=== PATIENT | male | born 1940 | race Caucasian/White ===

== ENCOUNTER 2016-12-27 09:20 | Emergency (ER) | payer MEDICARE, BC ==
[2016-12-27 09:41] LABS: BASOPHILS 0.5 % (0.0-2.0); EOSINOPHILS 2.7 % (0.0-6.0); EOSINOPHILS# 0.2 X 10^3uL (0.0-0.4); HEMATOCRIT 42.9 % (42.0-54.0); HEMOGLOBIN 14.8 g/dL (14.0-18.0); LYMPHOCYTES 11.8 % (20.0-40.0); LYMPHOCYTES# 1.1 X 10^3uL (0.8-3.8); MEAN CELL VOLUME 91.5 fL (80.0-100.0); MEAN CORPUS. HGB CONCENTRATION 34.5 g/dL (32.0-36.0); MEAN CORPUSCULAR HEMOGLOBIN 31.6 pg (29.0-35.0); MEAN PLATELET VOLUME 8.2 fL (7.4-10.4); MONOCYTES 6.2 % (2.0-10.0); MONOCYTES# 0.6 X 10^3uL (0.2-1.0); NEUTROPHILS 78.8 % (54.0-75.0); NEUTROPHILS# 7.3 X 10^3uL (2.6-6.7); PLATELET COUNT 199 X 10^3uL (130-440); RED BLOOD COUNT 4.69 X 10^6uL (4.20-6.10); RED CELL DISTRIBUTION WIDTH 13.8 % (11.5-14.5); WHITE BLOOD COUNT 9.2 X 10^3uL (3.9-10.7)
[2016-12-27 10:06] LABS: BLOOD UREA NITROGEN 19 mg/dL (9-20); CALCIUM 9.4 mg/dL (8.4-10.2); CHLORIDE 100 mmol/L (98-107); EST GLOMERULAR FILTRATION RATE > 60 mL/min; GLUCOSE 117 mg/dL (70-100); MAGNESIUM 2.2 mg/dL (1.6-2.3); POTASSIUM 4.4 mmol/L (3.5-5.1); SODIUM 141 mmol/L (137-145)
[2016-12-27 10:18] LABS: TROPONIN I < 0.012 ng/mL (0.00-0.034)
--- NOTE | 2016-12-27 11:58 | ER PHYSICIAN DOCUMENTATION ---
Physician Documentation [facility] Name:Bhupinder Blake Age:76 yrs Sex:Male :1940 Arrival Date:12/27/2016 Time:09:20 BedTrauma-C Private MD:No PCP, Identified ED Jorge Luis Emanuel Disposition: 12/27 20:53 Critical Care: not applicable. Chart complete. tl1 Disposition: 12/27/16 10:45 Discharged to Home/Self Care. Impression: Dyspnea, Atrial Fibrillation. - Condition is Good. - Prescriptions for OXYGEN - inhale 2 Liter by INHALATION route as directed; 1 bottle. - Medical Reconciliation form form. - Follow up: Private Physician; When: 4- 6 days; Reason: Recheck today's complaints, Continuance of care. - Problem is an acute exacerbation. - Symptoms have improved. HPI: 09:34 This 76 yrs old Male presents to ER via Private Vehicle with complaints of tl1 Shortness Of Breath. 09:35 He is here travelling from [place]. He arrived here 2 nights ago and last night he tl1 noted progressive orthopnea and PND. He slept poorly and does not have his CPAP with him. He has a h/o CHF, atrial fibrillation and obesity. He denies F/C/S/cough. No chest pain or hemoptysis. He is on Xarelto for his a fib. No change in his weight or bilateral lower extremity edema.. Historical: - Allergies: Renografin; - Home Meds: 1. nifedipine 30 mg oral TbER 1 tab once daily 2. Lipitor 20 mg oral tab 1 tab once daily 3. furosemide 20 mg oral tab 1 tab once daily 4. Klor-Con M20 20 mEq oral TbTQ 1 tab once daily 5. allopurinol oral 6. enalapril maleate 10 mg oral tab 1 tab once daily 7. citalopram 20 mg oral tab 1 tab once daily 8. aspirin 81 mg oral tab 1 tab once daily 9. levothyroxine 150 mcg oral tab 1 tab once daily 10. Pepcid Oral - PMHx: ENDOCARDITIS; Hypertension; Pneumonia; HIGH CHOLESTEROL; GOUT; THYROID PROBLEM; GERD; SLEEP APNEA; ATRIAL FIB; - PSHx: THREE PACEMAKERS ; HEART VALVE REPLACEMENT; - Tetanus: < 10 years. - Ebola Screening: : Patient negative for fever greater than or equal to 101.5 degrees Fahrenheit, and additional compatible Ebola Virus Disease symptoms. - Immunization history: Pneumococcal vaccine is up to date, Flu Vaccine < 1 year. - Social history: Smoking status: Patient states former smoker of tobacco. ROS: 09:35 Constitutional: Positive for fatigue, malaise, Negative for chills, fever. tl1 09:35 Cardiovascular: Positive for orthopnea, paroxysmal nocturnal dyspnea, Negative for chest pain, edema, palpitations. 09:35 Respiratory: Positive for dyspnea on exertion, orthopnea, shortness of breath, Negative for cough, hemoptysis, pleurisy, wheezing. 09:35 All other systems are negative. tl1 Exam: 09:35 Head/Face: Normocephalic, atraumatic. tl1 ENT: Nares patent. No nasal discharge, no septal abnormalities noted. Tympanic membranes are normal and external auditory canals are clear. Oropharynx with no redness, swelling, or masses, exudates, or evidence of obstruction, uvula midline. Mucous membranes moist. Neck: Trachea midline, no thyromegaly or masses palpated, and no cervical lymphadenopathy. Supple, full range of motion without nuchal rigidity, or vertebral point tenderness. No Meningismus. 09:35 Chest/axilla: Normal chest wall appearance and motion. Nontender with no deformity. tl1 No lesions are appreciated. 09:35 Constitutional: The patient appears in no acute distress, alert, awake, non-toxic, well developed, well hydrated, well groomed, well nourished. 09:35 Cardiovascular: Rate: normal, Rhythm: regular, Heart sounds: normal, Edema: is not appreciated, JVD: is not appreciated. 09:35 Respiratory: the patient does not display signs of respiratory distress, Respirations: normal, Breath sounds: are normal, no decreased breath sounds, no rales, rhonchi, no stridor, no wheezing. 09:35 Abdomen/GI: Inspection: abdomen appears normal, Palpation: abdomen is soft and non-tender. 09:35 Musculoskeletal/extremity: Extremities: all appear grossly normal, with no appreciated pain with palpation. 09:35 Skin: bilateral chronic venous stasis changes. 09:35 Neuro: Exam negative for acute changes. Vital Signs: 09:25 BP 162 / 87; Pulse 74; Resp 20; Temp 97.7(O); Pulse Ox 81% on R/A; Weight 106.59 kg; rh Height 5 ft. 0 in. (152.40 cm); Pain 0/10; 09:53 Pulse 68; Resp 16; Pulse Ox 94% on 2 lpm NC; rh 10:01 BP 123 / 54; Pulse 59; Resp 16; Pulse Ox 95% on 2 lpm NC; Pain 0/10; rh 11:55 BP 126 / 69; Pulse 75; Resp 16; Pulse Ox 93% on 2 lpm NC; Pain 0/10; rh 09:25 Body Mass Index 45.89 (106.59 kg, 152.40 cm) rh MDM: 09:33 Patient medically screened. tl1 09:37 EKG attached cb 10:25 ECG:. tl1 11:00 Differential diagnosis: Anemia Anxiety Reaction asthma, Bronchitis CHF exacerbation, tl1 Chronic Obstructive Pulmonary Disease Myocardial Infarction pneumonia, Pneumothorax pulmonary edema, Pulmonary Embolism reactive airway disease, Unstable Angina. Antibiotic administration: Not indicated. The patient's pulmonary embolism risk score was calculated as follows: No Risks (0 Pts). Data reviewed: vital signs, nurses notes, lab test result(s), cardiac enzymes, CBC, electrolytes, hepatic panel, EKG, radiologic studies, plain films. Data reviewed: and as a result, I will discharge patient. Data interpreted: software intern: Pulse oximetry:. Test interpretation: by ED physician or midlevel provider: plain radiologic studies, ECG. Counseling: I had a detailed discussion with the patient and/or guardian regarding: the historical points, exam findings, and any diagnostic results supporting the discharge/admit diagnosis, lab results, radiology results, the need for outpatient follow up, with the patient's primary care provider, to return to the emergency department if symptoms worsen or persist or if there are any questions or concerns that arise at home. Special discussion: He has no evidence for pneumonia, PE, ACS, CHF, HAPE anemia , metabolic acidosis. He is fairly chronically ill at baseline and I think coming [place] 7500 [place] is what is pushing him a little bit over the edge from a cardiorespiratory standpoint. He would like to stay in [facility], and should be able to tolerate the altitude with a little supplemental oxygen, which we have ordered for him.. ED course: He felt much better with supplemental oxygen, like he had returned to his baseline and he was comfortable being d/c'd from the ED.. 12/27 09:47 Order name: CBC AUTO DIF, MDIF/RMOR IF IND; Complete Time: 10:42 EDAL 12/27 09:57 Interpretation: WHITE BLOOD COUNT 9.2; HEMOGLOBIN 14.8; HEMATOCRIT 42.9; PLATELET COUNT tl1 199; NEUTROPHILS 78.8. 12/27 09:57 Order name: DDIMER; Complete Time: 10:42 EDMS 12/27 10:19 Order name: BASIC METABOLIC PANEL; Complete Time: 10:42 EDMS 12/27 10:37 Interpretation: Normal: SODIUM 141; POTASSIUM 4.4; CHLORIDE 100; CARBON DIOXIDE 23; tl1 GLUCOSE 117; BLOOD UREA NITROGEN 19; CREATININE 1.0; EST GLOMERULAR FILTRATION RATE > 60; CALCIUM 9.4. 12/27 10:19 Order name: MAGNESIUM; Complete Time: 10:42 EDMS 12/27 10:36 Interpretation: Normal: MAGNESIUM 2.2. tl1 12/27 10:19 Order name: BNP,NT-PRO; Complete Time: 10:42 EDAL 12/27 10:36 Interpretation: Normal: BNP,NT-PRO 476. tl1 12/27 10:19 Order name: TROPONIN I; Complete Time: 10:42 EDAL 12/27 10:36 Interpretation: Normal: TROPONIN I < 0.012. [facility] 12/27 13:15 Order name: CHEST; [place] [id number] [facility] 12/27 09:28 Order name: 12-lead EKG; Complete Time: 09:28 12/27 09:32 Order name: Iv Saline Lock; Complete Time: 09:32 12/27 09:32 Order name: Place Patient On Monitor; Complete Time: 09:32 12/27 09:32 Order name: Pulse Ox Continuous; Complete Time: 09:32 rh EC:22 Rate is 88 beats/min. Rhythm is irregularly irregular. QRS Gary is Normal. QRS interval tl1 is normal at 93 msec. QT interval is normal at 411 msec. No Q waves. T waves are Normal. No ST changes noted. Clinical impression: Atrial Fibrillation and with borderline prolonge QTc (498). Interpreted by me. Reviewed by me. Dispensed Medications: No medications were administered Signatures: Checo Archer RN RN tg Ballinghoff, Cindy, RN RN cb Leigh, Jorge Luis, MD MD tl1 Connie Cook
--- NOTE | 2016-12-27 11:58 | ER NURSING DOCUMENTATION ---
Nurse's Notes [facility] Name:Bhupinder Blake Age:76 yrs Sex:Male :1940 Arrival Date:12/27/2016 Time:09:20 BedTrauma-C Private MD:No PCP, Identified Diagnosis:Dyspnea;Atrial Fibrillation Presentation: 12/27 09:26 Acuity: KARLIE 2 rh 09:26 Presenting complaint: Patient states: Pt has been having SOB at night while attempting rh to sleep. PT feels like he can't quite catch his breath. Pt also was somewhere lightheaded out of the shower this AM and was "confused for a moment". Transition of care: Home. 09:26 Method Of Arrival: Private Vehicle Triage Assessment: 09:40 General: Appears in no apparent distress, Behavior is cooperative. Pain: Denies pain. rh EENT: Oral mucosa is dry. Neuro: Level of Consciousness is awake, alert, obeys commands, Oriented to person, place, time, event. Cardiovascular: Capillary refill < 3 seconds Chest pain is denied. Respiratory: Airway is patent Respiratory effort is even, unlabored, Respiratory pattern is regular, symmetrical, Reports shortness of breath at rest Onset: The symptoms/episode began/occurred at an unknown time. the patient has moderate shortness of breath. GI: Denies nausea. : No deficits noted. Derm: Skin is intact, is healthy with good turgor, Skin is pink, warm & dry. Historical: - Allergies: Renografin; - Home Meds: 1. nifedipine 30 mg oral TbER 1 tab once daily 2. Lipitor 20 mg oral tab 1 tab once daily 3. furosemide 20 mg oral tab 1 tab once daily 4. Klor-Con M20 20 mEq oral TbTQ 1 tab once daily 5. allopurinol oral 6. enalapril maleate 10 mg oral tab 1 tab once daily 7. citalopram 20 mg oral tab 1 tab once daily 8. aspirin 81 mg oral tab 1 tab once daily 9. levothyroxine 150 mcg oral tab 1 tab once daily 10. Pepcid Oral - PMHx: ENDOCARDITIS; Hypertension; Pneumonia; HIGH CHOLESTEROL; GOUT; THYROID PROBLEM; GERD; SLEEP APNEA; ATRIAL FIB; - PSHx: THREE PACEMAKERS ; HEART VALVE REPLACEMENT; - Tetanus: < 10 years. - Ebola Screening: : Patient negative for fever greater than or equal to 101.5 degrees Fahrenheit, and additional compatible Ebola Virus Disease symptoms. - Immunization history: Pneumococcal vaccine is up to date, Flu Vaccine < 1 year. - Social history: Smoking status: Patient states former smoker of tobacco. Screenin:34 Infectious Disease Risk None. Abuse screen: Denies threats or abuse. Denies injuries rh from another. Nutritional screening: No deficits noted. Assessment: 09:34 See Triage Assessment done by same RN. rh 10:57 Reassessment: Pt up to restroom and o2 saturation was 93% on 2 liters. rh 10:58 Reassessment: At rest patient on 2 liters and his saturation is 95% . rh 11:07 Reassessment: spoke with woman from [facility], she and the set up payment plan for rh the home oxygen. [facility] will be coming by in 30 minutes to provide home o2 and instructions. . Vital Signs: 09:25 BP 162 / 87; Pulse 74; Resp 20; Temp 97.7(O); Pulse Ox 81% on R/A; Weight 106.59 kg; rh Height 5 ft. 0 in. (152.40 cm); Pain 0/10; 09:53 Pulse 68; Resp 16; Pulse Ox 94% on 2 lpm NC; rh 10:01 BP 123 / 54; Pulse 59; Resp 16; Pulse Ox 95% on 2 lpm NC; Pain 0/10; rh 11:55 BP 126 / 69; Pulse 75; Resp 16; Pulse Ox 93% on 2 lpm NC; Pain 0/10; rh 09:25 Body Mass Index 45.89 (106.59 kg, 152.40 cm) rh ED Course: 09:21 Patient arrived in ED. ds 09:21 No PCP, Identified is Private Physician. ds 09:22 EKG done. (by ED staff). Reviewed by Jorge Luis Dimas MD. tg 09:25 Inserted peripheral IV: 20 gauge in right Wrist and blood collected. cb 09:25 belt buckle maker on. Pulse ox on. NIBP on. rh 09:26 Connie Cook is Primary Nurse. rh 09:26 Triage completed. rh 09:27 Oxygen Oxygen administration via nasal cannula @ 2L/min. tg 09:33 Jorge Luis Dimas MD is Attending Physician. tl1 09:33 Notified ED Physician of patient's arrival and chief complaint. Dr. Dimas notified. 09:34 Labs drawn. (by ED staff). Sent per order to lab. cb 09:34 Valuables Remains with patient Patient has correct armband on for positive rh identification. Placed in gown. Bed in low position. Call light in reach. Side rails up X 1. 09:37 EKG attached cb 09:40 Port Xray Completed. hz 10:55 Assisted to bathroom. rh Administered Medications: No medications were administered Outcome: 10:45 Discharge ordered by . [email or web address] 11:55 Discharged to home via wheelchair, with significant other. 11:55 Condition: improved 11:55 Discharge Assessment: Patient awake, alert and oriented x 3. No cognitive and/or functional deficits noted. Patient verbalized understanding of disposition instructions. 11:55 Discharge instructions given to patient, significant other, Instructed on discharge instructions, follow up and referral plans. Demonstrated understanding of instructions. 11:55 IV D/Paco 11:57 Patient left the ED. 12/28 11:03 Discharge F/U Call: Unable to reach: no answer st Signatures: Checo Archer, RN RN Caitlin Edmond, RN Ava More cb RN RN st Aleksey, Blanquita, Reg Reg Jorge Luis Aparicio MD MD tl1 Connie Cook Elise Vaughan hz
--- NOTE | 2016-12-27 12:01 | RADIOLOGY REPORT ---
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 Considering limited inspiration and positioning the heart, vessels and lungs are grossly unremarkable. No infiltrate, fluid or pneumothorax is seen. IMPRESSION: Significant limited examination demonstrates no gross abnormality. If clinically indicated, further evaluation and/or follow-up may be of benefit. MTDD
== END 2016-12-27 11:58 | disposition home or self-care (01) ==
LOC: ER 09:20
DX: R06.00 Dyspnea, unspecified (principal); I48.91 Unspecified atrial fibrillation; R06.01 Orthopnea; R06.02 Shortness of breath; R53.83 Other fatigue; R53.81 Other malaise; I10 Essential (primary) hypertension; I50.9 Heart failure, unspecified; I38 Endocarditis, valve unspecified; Z95.0 Presence of cardiac pacemaker; Z95.4 Presence of other heart-valve replacement; G47.30 Sleep apnea, unspecified; Z79.899 Other long term (current) drug therapy; Z79.82 Long term (current) use of aspirin
CPT/HCPCS: 71010; 80048; 83735; 83880; 84484; 85025; 85379; 93005; 99284; 99285